=== PATIENT | female | born 1990 | race Caucasian/White ===

== ENCOUNTER 2016-12-26 13:47 | Emergency (ER) | payer OTHER ==
[~2016-12-26] VITALS: Ht 165.1 cm; Wt 79.4 kg
[2016-12-26] MEDS ORDERED: NEXIUM40 MG PO (14:15)
[2016-12-26 14:49] VITALS: BP 123/70
[2016-12-26] MEDS ORDERED: HYDROXYZINE HCL25 M1 PO (14:54)
[2016-12-26] MEDS ORDERED: REGLAN 10 MG TA10 MG PO (14:54)
== END 2016-12-26 21:05 | disposition home or self-care (01) ==
LOC: ER 13:47
DX: R13.10 Dysphagia, unspecified (principal); F41.9 Anxiety disorder, unspecified; J45.909 Unspecified asthma, uncomplicated; Z91.040 Latex allergy status; Z88.2 Allergy status to sulfonamides; Z88.8 Allergy status to other drugs, medicaments and biological substances; Z98.890 Other specified postprocedural states